=== PATIENT | female | born 1965 | race Caucasian/White ===

== ENCOUNTER → 2017-06-24 | Outpatient (CLI) | payer OTHER | END | disposition home or self-care (01) | LOC: KCIC US 10:44 | DX: D25.1 Intramural leiomyoma of uterus (principal); D64.89 Other specified anemias | CPT/HCPCS: 76830; 76856 ==

== ENCOUNTER 2017-09-24 20:21 | Inpatient (IN) | payer OTHER ==
[2017-09-24] MEDS ORDERED: PIP/TAZO PER PHARMACY MC (20:45)
[2017-09-24] MEDS ORDERED: VANCOMYCIN 1 GM in IV NORMAL SALINE 250ML 250 ML IV (20:45)
[2017-09-24] MEDS: VANCOMYCIN PER PHARMACY MC (21:11)
[2017-09-24] MEDS: LACTOBACILLUS RHAMNOSUS GG 1 CAPSULE. PO (22:12)
[2017-09-24] MEDS: IV NORMAL SALINE 1000ML BAG 1,000 ML IV (22:12)
[2017-09-24] MEDS: MORPHINE SULFATE 2 MG/ML DISP.SYRIN. IV (22:13)
[2017-09-24] MEDS: HEPARIN PF for SUB-Q USE 5,000 UNIT/0.5 ML VIAL. SQ (22:17)
[2017-09-24] MEDS: PIPERACILLIN/TAZOBACTAM 3.375 GM in IV NORMAL SALINE 50ML 50 ML IV (23:35)
[2017-09-25] MEDS ORDERED: PIPERACILLIN/TAZOBACTAM 3.375 GM in IV NORMAL SALINE 50ML 50 ML IV
[2017-09-25] MEDS: MORPHINE SULFATE 2 MG/ML DISP.SYRIN. IV ×8 (03:25→22:04)
[2017-09-25] MEDS: ONDANSETRON PF 4 MG/2 ML VIAL. IV ×2 (03:27→08:00)
[2017-09-25] MEDS: PIPERACILLIN/TAZOBACTAM 3.375 GM in IV NORMAL SALINE 50ML 50 ML IV ×3 (05:54→17:16)
[2017-09-25 06:06] LABS: ADD MAN DIFF? NO
[2017-09-25 06:10] LABS: BASO % 1 % (0-3); EOS # 0.6 x10^3/uL (0.0-0.7); EOS % 11 % (0-3); HEMATOCRIT 31.4 % (36.0-47.0); HEMOGLOBIN 10.4 g/dL (12.0-15.5); LYMPH # 1.3 x10^3/uL (1.0-4.8); LYMPH % 22 % (24-48); MEAN CORPUSCULAR HEMOGLOBIN 29 pg (25-35); MEAN CORPUSCULAR HGB CONC 33 g/dL (31-37); MEAN CORPUSCULAR VOLUME 87 fL (79-100); MONO # 0.6 x10^3/uL (0.0-1.1); MONO % 10 % (0-9); NEUT # 3.2 x10^3uL (1.8-7.7); NEUT % 56 % (31-73); PLATELET COUNT 275 x10^3/uL (140-400); RED BLOOD COUNT 3.63 x10^6/uL (3.50-5.40); RED CELL DISTRIBUTION WIDTH 22.3 % (11.5-14.5); WHITE BLOOD COUNT 5.7 x10^3/uL (4.0-11.0)
[2017-09-25] MEDS: VANCOMYCIN 1 GM in IV NORMAL SALINE 250ML 250 ML IV ×2 (06:31→18:04)
[2017-09-25] MEDS: HEPARIN PF for SUB-Q USE 5,000 UNIT/0.5 ML VIAL. SQ ×3 (06:40→22:15)
[2017-09-25 06:48] LABS: ANION GAP 11 (6-14); BLOOD UREA NITROGEN 10 mg/dL (7-20); CALCIUM 7.9 mg/dL (8.5-10.1); CARBON DIOXIDE 23 mmol/L (21-32); CHLORIDE 105 mmol/L (98-107); CREATININE 1.2 mg/dL (0.6-1.0); GFR 47.4; GLUCOSE 77 mg/dL (70-99); POTASSIUM 3.8 mmol/L (3.5-5.1); SODIUM 139 mmol/L (136-145)
[2017-09-25 08:47] LABS: ANISOCYTOSIS SLIGHT; PLT ESTIMATE ADEQUATE (ADEQUATE)
[2017-09-25] MEDS: LACTOBACILLUS RHAMNOSUS GG 1 CAPSULE. PO ×2 (09:00→21:02)
[2017-09-25] MEDS: BARIUM SULFATE 60% 355 ML SUSP PO (10:15)
[2017-09-25] MEDS: IV NORMAL SALINE 1000ML BAG 1,000 ML IV ×2 (10:20→20:23)
[2017-09-25] MEDS: VANCOMYCIN PER PHARMACY MC (13:12)
[2017-09-26] MEDS: MORPHINE SULFATE 2 MG/ML DISP.SYRIN. IV ×5 (00:12→12:32)
[2017-09-26] MEDS: PIPERACILLIN/TAZOBACTAM 3.375 GM in IV NORMAL SALINE 50ML 50 ML IV ×5 (00:13→23:35)
[2017-09-26 04:17] LABS: ADD MAN DIFF? NO
[2017-09-26 04:35] LABS: ANION GAP 8 (6-14); BLOOD UREA NITROGEN 12 mg/dL (7-20); CALCIUM 7.6 mg/dL (8.5-10.1); CARBON DIOXIDE 23 mmol/L (21-32); CHLORIDE 110 mmol/L (98-107); CREATININE 1.1 mg/dL (0.6-1.0); GFR 52.4; GLUCOSE 59 mg/dL (70-99); POTASSIUM 3.8 mmol/L (3.5-5.1); SODIUM 141 mmol/L (136-145)
[2017-09-26 04:41] LABS: VANC TR 16.7 mcg/mL (10.0-20.0)
[2017-09-26 04:57] LABS: BASO % 1 % (0-3); EOS # 0.6 x10^3/uL (0.0-0.7); EOS % 12 % (0-3); HEMATOCRIT 30.5 % (36.0-47.0); LYMPH % 19 % (24-48); MEAN CORPUSCULAR HEMOGLOBIN 28 pg (25-35); MEAN CORPUSCULAR HGB CONC 33 g/dL (31-37); MEAN CORPUSCULAR VOLUME 87 fL (79-100); MONO # 0.4 x10^3/uL (0.0-1.1); MONO % 8 % (0-9); NEUT # 3.1 x10^3uL (1.8-7.7); NEUT % 60 % (31-73); PLATELET COUNT 301 x10^3/uL (140-400); RED BLOOD COUNT 3.52 x10^6/uL (3.50-5.40); WHITE BLOOD COUNT 5.2 x10^3/uL (4.0-11.0)
[2017-09-26] MEDS: VANCOMYCIN PER PHARMACY MC (06:08)
[2017-09-26] MEDS: VANCOMYCIN 1 GM in IV NORMAL SALINE 250ML 250 ML IV ×2 (06:24→17:48)
[2017-09-26] MEDS: HEPARIN PF for SUB-Q USE 5,000 UNIT/0.5 ML VIAL. SQ ×3 (06:29→21:36)
[2017-09-26] MEDS: LACTOBACILLUS RHAMNOSUS GG 1 CAPSULE. PO ×2 (08:19→21:32)
[2017-09-26] MEDS: FLUoxetine HCL 20 MG CAPSULE PO (11:23)
[2017-09-26] MEDS: IV NORMAL SALINE 1000ML BAG 1,000 ML IV ×3 (11:24→21:36)
[2017-09-26 11:27] LABS: POC GLUCOSE 109 mg/dL (70-99)
[2017-09-26] MEDS ORDERED: ZOLPIDEM 5 MG TABLET. PO (12:00)
[2017-09-26] MEDS: BISACODYL 10 MG SUPP.RECT. PR (12:33)
[2017-09-26] MEDS: ZOLPIDEM 5 MG TABLET. PO (21:32)
[2017-09-27 04:49] LABS: ADD MAN DIFF? NO
[2017-09-27] MEDS: PIPERACILLIN/TAZOBACTAM 3.375 GM in IV NORMAL SALINE 50ML 50 ML IV ×4 (04:59→23:35)
[2017-09-27 05:00] LABS: BASO # 0.1 x10^3/uL (0.0-0.2); BASO % 1 % (0-3); EOS # 0.5 x10^3/uL (0.0-0.7); EOS % 11 % (0-3); HEMATOCRIT 26.8 % (36.0-47.0); HEMOGLOBIN 8.8 g/dL (12.0-15.5); LYMPH # 1.3 x10^3/uL (1.0-4.8); LYMPH % 26 % (24-48); MEAN CORPUSCULAR HEMOGLOBIN 28 pg (25-35); MEAN CORPUSCULAR HGB CONC 33 g/dL (31-37); MEAN CORPUSCULAR VOLUME 86 fL (79-100); MONO # 0.3 x10^3/uL (0.0-1.1); MONO % 6 % (0-9); NEUT # 2.8 x10^3uL (1.8-7.7); NEUT % 56 % (31-73); PLATELET COUNT 294 x10^3/uL (140-400); RED BLOOD COUNT 3.11 x10^6/uL (3.50-5.40); WHITE BLOOD COUNT 4.9 x10^3/uL (4.0-11.0)
[2017-09-27] MEDS: IV NORMAL SALINE 1000ML BAG 1,000 ML IV ×2 (05:00→21:24)
[2017-09-27] MEDS: HEPARIN PF for SUB-Q USE 5,000 UNIT/0.5 ML VIAL. SQ ×3 (05:04→21:34)
[2017-09-27 05:32] LABS: ANION GAP 8 (6-14); BLOOD UREA NITROGEN 6 mg/dL (7-20); CALCIUM 7.3 mg/dL (8.5-10.1); CARBON DIOXIDE 23 mmol/L (21-32); CHLORIDE 109 mmol/L (98-107); CREATININE 0.9 mg/dL (0.6-1.0); GLUCOSE 80 mg/dL (70-99); POTASSIUM 3.5 mmol/L (3.5-5.1); SODIUM 140 mmol/L (136-145)
[2017-09-27] MEDS: VANCOMYCIN 1 GM in IV NORMAL SALINE 250ML 250 ML IV ×2 (05:38→18:02)
[2017-09-27] MEDS: LACTOBACILLUS RHAMNOSUS GG 1 CAPSULE. PO ×2 (09:58→21:23)
[2017-09-27] MEDS: FLUoxetine HCL 20 MG CAPSULE PO (09:58)
[2017-09-27] MEDS: VANCOMYCIN PER PHARMACY MC (10:11)
[2017-09-27] MEDS: SUCRALFATE 1 GM TABLET. PO ×3 (11:55→21:23)
[2017-09-27] MEDS: ZOLPIDEM 5 MG TABLET. PO (21:23)
[2017-09-28 04:32] LABS: ADD MAN DIFF? NO
[2017-09-28 04:36] LABS: BASO # 0.1 x10^3/uL (0.0-0.2); BASO % 2 % (0-3); EOS # 0.7 x10^3/uL (0.0-0.7); EOS % 16 % (0-3); HEMOGLOBIN 9.3 g/dL (12.0-15.5); LYMPH # 1.5 x10^3/uL (1.0-4.8); LYMPH % 32 % (24-48); MEAN CORPUSCULAR HEMOGLOBIN 29 pg (25-35); MEAN CORPUSCULAR HGB CONC 33 g/dL (31-37); MEAN CORPUSCULAR VOLUME 87 fL (79-100); MONO # 0.4 x10^3/uL (0.0-1.1); MONO % 8 % (0-9); NEUT % 44 % (31-73); PLATELET COUNT 288 x10^3/uL (140-400); RED BLOOD COUNT 3.24 x10^6/uL (3.50-5.40); RED CELL DISTRIBUTION WIDTH 21.1 % (11.5-14.5); WHITE BLOOD COUNT 4.7 x10^3/uL (4.0-11.0)
[2017-09-28] MEDS: PIPERACILLIN/TAZOBACTAM 3.375 GM in IV NORMAL SALINE 50ML 50 ML IV ×3 (05:02→18:05)
[2017-09-28] MEDS: HEPARIN PF for SUB-Q USE 5,000 UNIT/0.5 ML VIAL. SQ ×3 (05:04→21:30)
[2017-09-28 05:18] LABS: ANION GAP 12 (6-14); BLOOD UREA NITROGEN 3 mg/dL (7-20); CALCIUM 7.9 mg/dL (8.5-10.1); CARBON DIOXIDE 22 mmol/L (21-32); CHLORIDE 110 mmol/L (98-107); CREATININE 0.9 mg/dL (0.6-1.0); GLUCOSE 85 mg/dL (70-99); POTASSIUM 3.6 mmol/L (3.5-5.1); SODIUM 144 mmol/L (136-145)
[2017-09-28] MEDS: VANCOMYCIN 1 GM in IV NORMAL SALINE 250ML 250 ML IV ×2 (05:47→18:50)
[2017-09-28] MEDS: SUCRALFATE 1 GM TABLET. PO ×4 (07:30→21:26)
[2017-09-28] MEDS: LACTOBACILLUS RHAMNOSUS GG 1 CAPSULE. PO ×2 (10:21→21:26)
[2017-09-28] MEDS: FLUoxetine HCL 20 MG CAPSULE PO (10:22)
[2017-09-28] MEDS: IV NORMAL SALINE 1000ML BAG 1,000 ML IV (12:36)
[2017-09-28] MEDS: VANCOMYCIN PER PHARMACY MC (13:37)
[2017-09-28] MEDS: ZOLPIDEM 5 MG TABLET. PO (21:26)
[2017-09-29] MEDS: PIPERACILLIN/TAZOBACTAM 3.375 GM in IV NORMAL SALINE 50ML 50 ML IV ×3 (00:29→12:00)
[2017-09-29 04:50] LABS: ADD MAN DIFF? NO
[2017-09-29 05:16] LABS: BASO # 0.1 x10^3/uL (0.0-0.2); BASO % 2 % (0-3); EOS # 0.7 x10^3/uL (0.0-0.7); EOS % 17 % (0-3); HEMATOCRIT 28.2 % (36.0-47.0); HEMOGLOBIN 9.2 g/dL (12.0-15.5); LYMPH # 1.4 x10^3/uL (1.0-4.8); LYMPH % 34 % (24-48); MEAN CORPUSCULAR HEMOGLOBIN 28 pg (25-35); MEAN CORPUSCULAR HGB CONC 33 g/dL (31-37); MEAN CORPUSCULAR VOLUME 87 fL (79-100); MONO # 0.3 x10^3/uL (0.0-1.1); MONO % 8 % (0-9); NEUT # 1.7 x10^3uL (1.8-7.7); NEUT % 39 % (31-73); PLATELET COUNT 285 x10^3/uL (140-400); RED BLOOD COUNT 3.24 x10^6/uL (3.50-5.40); WHITE BLOOD COUNT 4.3 x10^3/uL (4.0-11.0)
[2017-09-29 05:33] LABS: ANION GAP 9 (6-14); BLOOD UREA NITROGEN 3 mg/dL (7-20); CALCIUM 7.8 mg/dL (8.5-10.1); CARBON DIOXIDE 24 mmol/L (21-32); CHLORIDE 111 mmol/L (98-107); GFR 58.5; GLUCOSE 80 mg/dL (70-99); POTASSIUM 3.8 mmol/L (3.5-5.1); SODIUM 144 mmol/L (136-145)
[2017-09-29] MEDS: HEPARIN PF for SUB-Q USE 5,000 UNIT/0.5 ML VIAL. SQ ×2 (06:05→14:54)
[2017-09-29] MEDS: VANCOMYCIN 1 GM in IV NORMAL SALINE 250ML 250 ML IV (06:41)
[2017-09-29] MEDS: IV NORMAL SALINE 1000ML BAG 1,000 ML IV (07:40)
[2017-09-29] MEDS: SUCRALFATE 1 GM TABLET. PO ×2 (08:55→11:47)
[2017-09-29] MEDS: FLUoxetine HCL 20 MG CAPSULE PO (08:55)
[2017-09-29] MEDS: LACTOBACILLUS RHAMNOSUS GG 1 CAPSULE. PO (08:55)
== END 2017-09-29 16:05 | disposition home or self-care (01) | DRG 388 ==
LOC: 5 SOUTH 20:21
DX: K56.600 Partial intestinal obstruction, unspecified as to cause (principal); G93.41 Metabolic encephalopathy; N39.0 Urinary tract infection, site not specified; K56.7 Ileus, unspecified; F32.9 Major depressive disorder, single episode, unspecified; F41.9 Anxiety disorder, unspecified; M06.9 Rheumatoid arthritis, unspecified; D64.9 Anemia, unspecified; K21.9 Gastro-esophageal reflux disease without esophagitis; Z98.84 Bariatric surgery status; Z90.49 Acquired absence of other specified parts of digestive tract; Z82.49 Family history of ischemic heart disease and other diseases of the circulatory system; Z90.710 Acquired absence of both cervix and uterus; Z88.2 Allergy status to sulfonamides
CPT/HCPCS: 36415; 74250; 80048; 80202; 82962; 85025; 97116-GP; 97162-GP; 97166-GO; 97530-GO; 97535-GO; J2060; J2270; J2405; J2543; J3370; J7030; J7050

== ENCOUNTER → 2018-08-24 | Outpatient (CLI) | payer OTHER ==
[2017-09-29 15:00] VITALS: BP 140/73
[~2018-08-24] MED LIST: ADAL40PE SQ; BUPIVACAINE MPF 0.25% 10 ML VIAL. ONE; CALC500T54 PO; CLON0.5T11 PO; DEXT20TA2 PO; DULO30CA2 PO; FERR325T14 PO; HYDR-2761 PO; IOHEXOL 180 MG/ML 10 ML VIAL. ONE; LAMO200T2 PO; LEFLUNOMIDE20 MG PO; LISD50CA3 PO; OMEG1CAP27 PO; PANT40TA77 PO; PREN1TAB58 PO; methylPREDNISolone ACETATE 80 MG/ML VIAL. ONE
--- NOTE | 2018-08-25 00:19 | PAIN ---
DATE OF SERVICE: 08/24/2018 INITIAL CONSULTATION FOR PAIN CLINIC CHIEF COMPLAINT: Left hip joint pain. HISTORY OF PRESENT ILLNESS: This is a 53-year-old female who presents with history of pain in the low back and left hip for about a year. The patient reports it is much worse over the past several months. She had seen her orthopedic surgeon, who did some diagnostic x-rays of the left hip showing mild degenerative change at the left hip joint line, with mild narrowing and mild marginal spurring and right side well maintained. The patient reports it is much worse with walking, standing, especially climbing on stairs, putting all of her weight on her left leg. It is sharp, stabbing, shooting, sometimes throbbing in the hip itself, radiating into the groin on the left side, worse with standing, all of her weight on her one leg such as a stair or step she is climbing. The patient reports it is better with sitting or lying down, when she lies down on her left side. It awakens her at least 1-3 times at night. The patient reports it does not affect her bowel or bladder control, but does affect her ability to walk significantly. She is not using any assistive devices, however, to ambulate. She has not had any current therapies. She is doing some stretching on her own with her hip, but no formal physical therapy or other treatments. She has tried hydrocodone as well as Tylenol, both of which do help decrease the pain and had those as recently as yesterday. The patient reports no symptoms on the right side and she is trying to avoid having to have any hip surgery performed and would like to try other modalities first. The patient rates her disability from 0-10, 10 being the worst. It is a 6 with family and home responsibilities; it is a 5 with recreation, social activity and occupation; 10 with sexual behavior; 2 with self-care and 0 with life-support activities. PAST MEDICAL HISTORY: Significant for gastroesophageal reflux; cigarette smoking, quit 20 years ago; arthritis; weight loss surgery; history of depression and rheumatoid arthritis. PAST SURGICAL HISTORY: Other surgeries include carpal tunnel release bilaterally, cholecystectomy, total hysterectomy, bowel resection, 2 C-sections, bilateral cataract extractions and bariatric surgery in 2013. CURRENT MEDICATIONS: Include lamotrigine, leflunomide, iron, Vyvanse, clonazepam, pantoprazole, hydrocodone, Adderall, Cymbalta, [place] fish oils, Humira, calcium and vitamins. ALLERGIES: THE PATIENT IS ALLERGIC TO SULFA. FAMILY HISTORY: Significant for colon cancers, lung cancer and heart disease. SOCIAL HISTORY: The patient does not drink alcohol. She quit smoking many years ago. She does not use any illegal, illicit or recreational drugs. The patient is , lives with her spouse, lives locally in [place], [place]. REVIEW OF SYSTEMS: The patient's review of systems is positive for those items mentioned in the history of present illness. All systems reviewed and otherwise negative. It is complete, full and well documented on the patient's chart. PHYSICAL EXAMINATION: VITAL SIGNS: The patient's blood pressure is 133/68, pulse is 67, respirations 16 and temperature is 98.7 degrees Fahrenheit. Height is 5 foot 6 inches, weight is 172 pounds. GENERAL: The patient is awake, alert, oriented, appropriate, very pleasant demeanor. HEENT EXAMINATION: Shows normocephalic, atraumatic. Extraocular movements are intact and symmetrical. Oral cavity, mucous membranes are moist and pink. Dentition is intact. NECK: Shows anterior throat supple, without palpable lymphadenopathy noted. Swallow reflex is symmetrical. CHEST: Shows normal on inspection. Breath sounds are clear to auscultation bilaterally. HEART: Shows S1 and S2 are clear. No murmurs auscultated. ABDOMEN: Soft, nontender and nondistended. No palpable organomegaly is noted. BACK: Shows spine grossly in the midline. Normal-appearing cervical lordotic curvature, thoracic kyphotic curvature and lumbar lordotic curvature. Lumbar paraspinous muscle shows symmetrical on inspection and good rotational motion of the lumbar spine, both laterally, greater than 10 degrees right and left as well as extension greater than 10 degrees, forward flexion 45 degrees, without significant pain reported. EXTREMITIES: The patient's lower extremities show deep tendon reflexes at 2+ in the patellar and 1+ tendo calcaneus tendons. Motor exam is strong with 5/5 dorsiflexion, extension, quadriceps and hamstring flexion. The patient's hip shows good rotation with a positive Jed sign on the left with external rotation and posterior displacement on the left hip; right side is negative. Peripheral pulses are 1+ posterior tibia. No peripheral edema is noted. The patient is able to stand, stand on her toes, but loses balance when putting all of her weight on her left leg and does have significant pain radiating into the groin with this maneuver on the left side. SKIN: Warm and dry. Good turgor. No edema. No sores, rashes or bruises. IMPRESSION: 1. This is a 53-year-old female with long history, approximately a year, of increasing pain in the left hip and groin. 2. X-rays of left hip joint as noted. 3. Arthritis. PLAN: Options were discussed with the patient, including conservative medical management, physical therapy and interventional techniques. She would like to pursue interventional techniques. We discussed a left intra-articular hip joint injection using C-arm fluoroscopic guidance. Risks were discussed including, but not limited to bleeding, infection, possibility of intravascular injection sequelae, spread of local anesthetic and numbness, side effects to steroid medication, exposure to fluoroscopy as well as poor results regarding pain control. The patient understands and wishes to proceed. The patient will return to the clinic in approximately 2 weeks for followup. She was counseled on her return appointment, activity level and side effects to be aware of. DIAGNOSIS: Left hip joint pain with primary osteoarthritis, left hip joint. PROCEDURE: Left intra-articular hip joint injection using C-arm fluoroscopic guidance under sterile prep and drape using local anesthetic. MEDICATION INJECTED: A total of 80 mg Depo-Medrol plus 3 mL of 0.25% bupivacaine and 2 mL of contrast. CONDITION AT DISCHARGE: Stable. The patient tolerated the procedure well, had no complications. AMBROSIO GE MD DR: DANIELA/mary JOB#: [id number] / [id number] Suhail Dillon MD
== END ==
LOC: PNCL 08:40
PROVIDERS: ATTEND Anesthesiology
DX: M16.12 Unilateral primary osteoarthritis, left hip (principal); K21.9 Gastro-esophageal reflux disease without esophagitis; F32.9 Major depressive disorder, single episode, unspecified; Z87.39 Personal history of other diseases of the musculoskeletal system and connective tissue; Z90.49 Acquired absence of other specified parts of digestive tract; Z90.710 Acquired absence of both cervix and uterus; Z98.42 Cataract extraction status, left eye; Z98.41 Cataract extraction status, right eye; Z88.1 Allergy status to other antibiotic agents; Z87.891 Personal history of nicotine dependence; Z96.1 Presence of intraocular lens
CPT/HCPCS: 20610; 77002; J1040; J3490; Q9965